=== PATIENT | female | born 1935 | race Caucasian/White ===

== ENCOUNTER 2021-07-24 13:50 | Observation (INO) ==
[2021-07-24 14:30] LABS: Basophils # 0.1 K/mcL (0.0-0.2); Basophils % 0.9 %; Eosinophils # 0.2 K/mcL (0.0-0.6); Eosinophils % 2.4 %; Hematocrit 45.9 % (35.3-44.9); Hemoglobin 15.1 g/dL (11.5-15.4); Immature Granulocytes % 0.3 % (0-4); Lymphocytes # 1.6 K/mcL (0.6-4.6); Lymphocytes % 23.2 %; Mean Corpuscular HGB Conc 32.9 g/dL (31.6-35.5); Mean Corpuscular Hemoglobin 31.4 pg (28.0-33.3); Mean Corpuscular Volume 95.4 fL (83.0-100.0); Mean Platelet Volume 10.1 fL (9.4-12.4); Monocytes # 0.6 K/mcL (0.0-1.3); Monocytes % 9.2 %; Neutrophils # 4.3 K/mcL (1.6-8.9); Platelet Count 216 K/mcL (140-400); Red Blood Count 4.81 M/mcL (3.82-4.97); Red Cell Distribution Width 14.7 % (11.5-14.5); White Blood Count 6.8 K/mcL (4.3-11.1)
[2021-07-24 15:12] LABS: Bilirubin,Urine Negative (Negative); Blood,Urine Negative (Negative); Clarity,Urine Clear (Clear); Color,Urine Light-Yellow (Yellow); Glucose,Urine (UA) Normal (Normal); Ketones,Urine Negative (Negative); Leukocyte Esterase,Urine Negative (Negative); Nitrite,Urine Negative (Negative); PH,Urine 6.5 pH Units (5.0-8.0); Protein,Urine Negative (Neg-Trace); Specific Gravity,Urine 1.018 (1.010-1.025); Urobilinogen,Urine Normal (Normal)
[2021-07-24 15:14] LABS: Amphetamine Screen,Urine Negative ng/mL (Cutoff=1000); Barbiturate Screen,Urine Negative ng/mL (Cutoff=200); Benzodiazepines Screen,Urine Negative ng/mL (Cutoff=300); Cannabinoid Screen,Urine Negative ng/mL (Cutoff = 50); Cocaine Screen,Urine Negative ng/mL (Cutoff= 300); Opiate Screen,Urine Negative ng/mL (Cutoff=300); Phencyclidine Screen,Urine Negative ng/mL (Cutoff=25)
[2021-07-24 15:34] LABS: Alanine Aminotransferase 18 Units/L (7-52); Albumin 4.1 g/dL (3.5-5.7); Alkaline Phosphatase 73 Units/L (34-104); Aspartate Amino Transferase 18 Units/L (13-39); BUN/Creatinine Ratio 19 (6-26); Bilirubin,Direct 0.2 mg/dL (0.0-0.2); Bilirubin,Indirect 0.5 mg/dL (0.0-1.0); Bilirubin,Total 0.7 mg/dL (0.3-1.0); Blood Urea Nitrogen 24 mg/dL (8-23); Carbon Dioxide 27 mEq/L (23-29); Chloride 108 mEq/L (98-107); Ethanol < 10 mg/dL (Less than 10); Globulin 2.1 g/dL (2.4-3.5); Glucose 103 mg/dL (70-105); Osmolality,Calculated 298 (280-300); Potassium 3.9 mEq/L (3.5-5.1); Sodium 142 mEq/L (136-145); Thyroid Stimulating Hormone 2.116 mcIU/mL (0.340-5.600); Total Protein 6.2 g/dL (6.4-8.9); Troponin I < 0.03 ng/mL (< 0.04); eGFR For African Americans 50 (> 60); eGFR For Non-African Americans 41 (> 60)
[2021-07-24] MEDS ORDERED: 0.9 % Sodium Chloride 500 ML IVC ONE (15:57)
[2021-07-24] MEDS ORDERED: Naloxone 0.4 MG/ML INJ IVP PRN (18:02)
[2021-07-25] MEDS: Levothyroxine 25 MCG TABLET PO SCH (05:33)
[2021-07-25 06:13] LABS: Basophils % 0.8 %; Eosinophils # 0.1 K/mcL (0.0-0.6); Eosinophils % 2.3 %; Immature Granulocytes % 0.2 % (0-4); Lymphocytes # 1.4 K/mcL (0.6-4.6); Mean Corpuscular HGB Conc 32.8 g/dL (31.6-35.5); Mean Corpuscular Hemoglobin 30.8 pg (28.0-33.3); Mean Corpuscular Volume 94.1 fL (83.0-100.0); Mean Platelet Volume 10.5 fL (9.4-12.4); Monocytes # 0.5 K/mcL (0.0-1.3); Monocytes % 10.5 %; Platelet Count 166 K/mcL (140-400); Red Blood Count 4.25 M/mcL (3.82-4.97); Red Cell Distribution Width 14.6 % (11.5-14.5); Segmented Neutrophils % 58.2 %; White Blood Count 5.1 K/mcL (4.3-11.1)
[2021-07-25 06:14] LABS: Hemoglobin 13.1 g/dL (11.5-15.4)
[2021-07-25 06:28] LABS: Chol/HDL Ratio 3.2 (0-4.9); Magnesium 1.8 mg/dL (1.6-2.6); Potassium 3.8 mEq/L (3.5-5.1)
[2021-07-25] MEDS ORDERED: Perflutren Lipid Microsphere 1.3 ML in 0.9 % Sodium Chloride 8.7 ML IVP PRN (07:30)
[2021-07-25] MEDS: carvediloL 6.25 MG TABLET PO SCH ×2 (09:38→16:55)
[2021-07-25] MEDS ORDERED: Morphine Sulfate 2 MG/ML SYRINGE IVP ONE (10:03)
[2021-07-25] MEDS: *HR* OxyCODONE/APAP 5/325 TABLET PO PRN (16:55)
[2021-07-26] MEDS: Levothyroxine 25 MCG TABLET PO SCH (05:20)
[2021-07-26] MEDS: carvediloL 6.25 MG TABLET PO SCH ×2 (10:19→16:41)
[2021-07-26] MEDS: Cholecalciferol (D-3) 1,000 UNIT (25MCG) TABLET PO SCH (10:19)
[2021-07-26] MEDS: *HR* OxyCODONE/APAP 5/325 TABLET PO PRN ×2 (10:19→16:41)
[2021-07-26] MEDS ORDERED: Acetaminophen 325 MG TABLET PO ONE (20:49)
[2021-07-27] MEDS: Levothyroxine 25 MCG TABLET PO SCH (04:26)
[2021-07-27] MEDS: *HR* OxyCODONE/APAP 5/325 TABLET PO PRN ×2 (04:26→08:21)
[2021-07-27] MEDS: carvediloL 6.25 MG TABLET PO SCH ×2 (08:00→17:49)
[2021-07-27] MEDS: Cholecalciferol (D-3) 1,000 UNIT (25MCG) TABLET PO SCH (08:09)
[2021-07-28] MEDS: *HR* OxyCODONE/APAP 5/325 TABLET PO PRN (00:15)
[2021-07-28 02:51] LABS: Basophils % 0.6 %; Eosinophils % 0.9 %; Hematocrit 40.3 % (35.3-44.9); Hemoglobin 13.2 g/dL (11.5-15.4); Immature Granulocytes % 0.2 % (0-4); Lymphocytes # 0.7 K/mcL (0.6-4.6); Mean Corpuscular HGB Conc 32.8 g/dL (31.6-35.5); Mean Corpuscular Hemoglobin 31.2 pg (28.0-33.3); Mean Corpuscular Volume 95.3 fL (83.0-100.0); Mean Platelet Volume 10.3 fL (9.4-12.4); Monocytes # 0.5 K/mcL (0.0-1.3); Monocytes % 11.1 %; Neutrophils # 3.4 K/mcL (1.6-8.9); Platelet Count 137 K/mcL (140-400); Red Blood Count 4.23 M/mcL (3.82-4.97); Red Cell Distribution Width 14.4 % (11.5-14.5); Segmented Neutrophils % 73.2 %; White Blood Count 4.7 K/mcL (4.3-11.1)
[2021-07-28 03:13] LABS: Potassium 3.9 mEq/L (3.5-5.1)
[2021-07-28] MEDS: Levothyroxine 25 MCG TABLET PO SCH (06:08)
[2021-07-28] MEDS: carvediloL 6.25 MG TABLET PO SCH ×2 (09:06→16:46)
[2021-07-28] MEDS: Cholecalciferol (D-3) 1,000 UNIT (25MCG) TABLET PO SCH (09:06)
[2021-07-29 05:51] LABS: Eosinophils % 2.9 %
[2021-07-29 05:53] LABS: Basophils % 0.7 %; Eosinophils # 0.1 K/mcL (0.0-0.6); Hematocrit 42.4 % (35.3-44.9); Immature Granulocytes % 0.4 % (0-4); Immature Platelets 3.4 % (1.1-6.1); Mean Corpuscular Hemoglobin 31.2 pg (28.0-33.3); Mean Corpuscular Volume 94.4 fL (83.0-100.0); Mean Platelet Volume 10.2 fL (9.4-12.4); Monocytes # 0.6 K/mcL (0.0-1.3); Monocytes % 13.7 %; Neutrophils # 2.7 K/mcL (1.6-8.9); Platelet Count 153 K/mcL (140-400); Red Blood Count 4.49 M/mcL (3.82-4.97); Red Cell Distribution Width 14.4 % (11.5-14.5); Segmented Neutrophils % 59.3 %; White Blood Count 4.5 K/mcL (4.3-11.1)
[2021-07-29 06:10] LABS: Potassium 4.2 mEq/L (3.5-5.1)
[2021-07-29] MEDS: Levothyroxine 25 MCG TABLET PO SCH (06:27)
[2021-07-29] MEDS: Cholecalciferol (D-3) 1,000 UNIT (25MCG) TABLET PO SCH (08:55)
[2021-07-29] MEDS: carvediloL 6.25 MG TABLET PO SCH ×2 (08:55→17:29)
[2021-07-29] MEDS: *HR* OxyCODONE/APAP 5/325 TABLET PO PRN ×2 (11:26→20:01)
[2021-07-30 04:45] LABS: Basophils % 0.9 %; Eosinophils # 0.1 K/mcL (0.0-0.6); Eosinophils % 3.3 %; Hematocrit 41.7 % (35.3-44.9); Hemoglobin 13.6 g/dL (11.5-15.4); Immature Granulocytes % 0.5 % (0-4); Lymphocytes # 0.8 K/mcL (0.6-4.6); Lymphocytes % 19.4 %; Mean Corpuscular HGB Conc 32.6 g/dL (31.6-35.5); Mean Corpuscular Hemoglobin 30.9 pg (28.0-33.3); Mean Corpuscular Volume 94.8 fL (83.0-100.0); Mean Platelet Volume 9.9 fL (9.4-12.4); Monocytes # 0.6 K/mcL (0.0-1.3); Monocytes % 14.9 %; Neutrophils # 2.6 K/mcL (1.6-8.9); Platelet Count 149 K/mcL (140-400); Red Cell Distribution Width 14.5 % (11.5-14.5); White Blood Count 4.2 K/mcL (4.3-11.1)
[2021-07-30 05:05] LABS: BUN/Creatinine Ratio 27 (6-26); Blood Urea Nitrogen 27 mg/dL (8-23); Calcium 8.7 mg/dL (8.6-10.3); Carbon Dioxide 22 mEq/L (23-29); Chloride 107 mEq/L (98-107); Glucose 107 mg/dL (70-105); Osmolality,Calculated 292 (280-300); Potassium 3.9 mEq/L (3.5-5.1); Sodium 138 mEq/L (136-145); eGFR For African Americans > 60 (> 60); eGFR For Non-African Americans 53 (> 60)
[2021-07-30] MEDS: Levothyroxine 25 MCG TABLET PO SCH (05:41)
[2021-07-30] MEDS: carvediloL 6.25 MG TABLET PO SCH ×2 (07:42→16:26)
[2021-07-30] MEDS: Cholecalciferol (D-3) 1,000 UNIT (25MCG) TABLET PO SCH (07:42)
[2021-07-30] MEDS: *HR* OxyCODONE/APAP 5/325 TABLET PO PRN (07:42)
[2021-07-31] MEDS: *HR* OxyCODONE/APAP 5/325 TABLET PO PRN (03:23)
[2021-07-31] MEDS: Levothyroxine 25 MCG TABLET PO SCH (05:09)
[2021-07-31 07:29] VITALS: BP 145/72; PULSE 61; TEMP 97.8; O2SAT 95
[2021-07-31] MEDS: carvediloL 6.25 MG TABLET PO SCH (07:32)
[2021-07-31] MEDS: Cholecalciferol (D-3) 1,000 UNIT (25MCG) TABLET PO SCH (07:32)
[2021-07-31 11:32] LABS: Influenza A PCR Negative (Negative); Influenza B PCR Negative (Negative); Resp. Syncytial Virus PCR Positive (Negative)
[2021-07-31 11:52] LABS: SARS-CoV-2 by PCR (In House) Negative (Negative)
== END 2021-07-31 15:57 ==
LOC: 3BNU 13:50 → EMEROOARM 13:50 → SUATTDRO 18:43 → 3BNU 20:14
PROVIDERS: ADMIT Pharmacist; ATTEND Pharmacist